=== PATIENT | female | born 1965 | race Caucasian/White ===

== ENCOUNTER 2018-01-06 11:37 | Emergency (ER) | END 2018-01-06 15:00 | disposition home or self-care (01) ==

== ENCOUNTER 2018-05-08 07:00 | Day surgery (SDC) | payer OTHER ==
[~2018-05-08] VITALS: Ht 152.4 cm; Wt 78.4 kg
[2018-05-08] MEDS ORDERED: MVI (08:35)
[2018-05-08] MEDS ORDERED: ATIVAN (08:35)
[2018-05-08] MEDS ORDERED: LASIX (08:35)
[2018-05-08] MEDS ORDERED: LIDOCAINE 2% (SDV) 5 ML INJ ONE ×2 (09:00→09:15)
[2018-05-08] MEDS ORDERED: MIDAZOLAM 1 MG/ML 2 ML INJ ONE (09:00)
[2018-05-08] MEDS ORDERED: PROPOFOL 40 ML ONE (09:00)
[2018-05-08 09:05] VITALS: BP 146/63; PULSE 68; RESP 18; Ht 152.4 cm; Wt 78.4 kg
--- NOTE | 2018-05-08 09:12 | PREAC ---
Date/Time of Note Date/Time of Note DATE: 05/08/18 TIME: 09:11 Anesthesia Eval and Record Evaluation Time Pre-Procedure Interview DATE: 05/08/18 TIME: 09:11 Age 53 Sex female NPO: 8 hrs Preoperative diagnosis colon polyps and abdominal pain Planned procedure egd and colonoscopy Past Medical History Past Medical History: Includes Psych: Anxiety Surgery & Anesthesia Issues No known issue Meds Anticoagulation: No Beta Jake within 24 hr: No Reason Beta Jake not given: Pt. not on B-Jake Reported Medications [Lasix] No Conflict Check 05/08/18 [Mvi] No Conflict Check 05/08/18 [Ativan] No Conflict Check 05/08/18 Meds reviewed: Yes Allergies Coded Allergies: No Known Allergy (Unverified , 05/08/18) Allergies Reviewed: Yes Labs/Studies Labs Reviewed: Reviewed by anesthesiologist test: N/A Pre-procedure Exam Airway: Adequate mouth opening, Adequate thyromental dist Mallampati: Mallampati IV Teeth: Normal Lung: Normal Heart: Normal ASA Physical Status ASA physical status: 2 Emergency: None Pre-operative Attestations Prior to commencing anesthesia and surgery, the patient was re-evaluated, there was verification of: *The patient's identity *The results of appropriate recent lab work and preoperative vital signs *The above evaluation not changing prior to induction *Anesthetic plan, risk benefits, alternative and complications discussed with patient/family; questions answered; patient/family understands, accepts and wishes to proceed. MELANIE BACON DO May 08, 2018 09:11
[2018-05-08] MEDS ORDERED: PROPOFOL 20 ML ONE (09:15)
[2018-05-08] MEDS ORDERED: ETOMIDATE 20 MG INJ ONE (09:15)
[2018-05-08] MEDS ORDERED: ONDANSETRON 4 MG INJ IV PRN (09:30)
[2018-05-08] MEDS ORDERED: LORAZEPAM 2 MG INJ IV PRN (09:30)
--- NOTE | 2018-05-08 10:21 | PAC ---
Date/Time of Note Date/Time of Note DATE: 05/08/18 TIME: 10:21 Post-Anesthesia Notes Post-Anesthesia Note Last documented vital signs 1021 105/65 65 99 98.2 15 Activity: WNL Respiratory function: WNL Cardiovascular function: WNL Mental status: Baseline Pain reasonably controlled: Yes Hydration appropriate: Yes Nausea/Vomiting absent: Yes MELANIE BACON DO May 08, 2018 10:21
[2018-05-08 10:32] VITALS: BP 105/53; PULSE 64; RESP 16
[2018-05-08 11:11] VITALS: BP 141/76; PULSE 76; RESP 18
== END 2018-05-08 15:31 | disposition home or self-care (01) ==
LOC: GIL 07:00
PROVIDERS: ATTEND Internal Medicine Gastroenterology
DX: Z12.11 Encounter for screening for malignant neoplasm of colon (principal); D12.5 Benign neoplasm of sigmoid colon; K64.8 Other hemorrhoids; K21.9 Gastro-esophageal reflux disease without esophagitis; K29.60 Other gastritis without bleeding
CPT/HCPCS: 43239; 45378; 88305; J2250; Z7610